=== PATIENT | female | born 1995 | race Caucasian/White ===

== ENCOUNTER 2018-12-28 23:51 | Emergency (ER) | payer OTHER ==
[2018-12-29 00:40] LABS: Absolute Neutrophil Ct (ANC) 3.26 (1.4-6.9); BASOPHIL % 0.2 % (0.0-0.4); Basophil (Absolute #) 0.01 (0-0.4); Eosinophil % 0.4 % (0.00-5.0); Eosinophil (Absolute #) 0.02 (0-0.5); Hemoglobin 9.9 gm/dl (12.0-16.0); Lymphocyte (Absolute #) 1.39 (1.0-4.6); Mean Cell Volume 74.4 fl (78-100); Mean Corpuscular Hgb Concent. 30.9 g/dl (32-36); Mean Platelet Volume 8.9 fl (6-9.5); Monocyte (Absolute #) 0.46 (0.0-1.3); Monocytes % 8.9 % (0.0-12.0); Neutrophil % 63.5 % (36.0-66.0); Platelet Count 206 K/mm3 (150-450); Red Cell Distribution Width 17.6 % (11.5-14.0); White Blood Count 5.1 K/mm3 (4.0-10.5)
[2018-12-29 00:53] LABS: ALBUMIN 3.8 g/dL (3.5-5.0); ALKALINE PHOSPHATASE 87 U/L (38-126); ANION GAP 12.2 MEQ/L (5-15); BLOOD UREA NITROGEN 10 mg/dL (7-17); CHLORIDE 101 mmol/L (98-107); Calcium 9.3 mg/dL (8.4-10.2); Carbon Dioxide 32 mmol/L (22-30); Creatinine 1 0.48 mg/dL (0.52-1.04); Glucose 106 mg/dL (74-106); Potassium 3.9 mmol/L (3.5-5.1); SGOT/AST 24 U/L (14-36); SGPT/ALT 12 U/L (0-35); SODIUM 142 mmol/L (137-145)
[2018-12-29 01:21] LABS: Slide Review 1 YES
[2018-12-29 01:33] LABS: Barbiturate,Urine NEGATIVE (NEGATIVE); Benzodiazepine,Urine POSITIVE (NEGATIVE); Cocaine,Urine NEGATIVE (NEGATIVE); Methadone,Urine NEGATIVE (NEGATIVE); Opiate,Urine POSITIVE (NEGATIVE); PCP,Urine NEGATIVE (NEGATIVE); THC,Urine NEGATIVE (NEGATIVE)
[2018-12-29] MEDS ORDERED: Depacon 500 MG/5 ML IV ONE (01:58)
[2018-12-29] MEDS ORDERED: Sodium Chloride 0.9% 100 ML IVPB 100 ML IV ONE (01:58)
[2018-12-29] MEDS: Depacon 500 MG/5 ML*** 500 MG in Sodium Chloride 0.9% 100 ML IVPB 100 ML IV ONE (02:05)
[2018-12-29 02:06] LABS: Amphetamine,Urine POSITIVE (NEGATIVE)
--- NOTE | 2018-12-29 02:11 | ERPHSYRPT ---
- History of Present Illness Time Seen by Provider: 12/29/18 01:15 Source: patient, EMS Exam Limitations: clinical condition Patient Subjective Stated Complaint: pt states that she had seizure yesterday and today, pt states that she has infection in her spine, pt states that she gets infusions, pt states she had seizure after being pulled over by police, police states that pt convulsions for 2 minutes, police state that pt was lethargic prior to seizure, pt had seizure at 2320 Triage Nursing Assessment: pt came into the er via ambulance, pt is tearful, pt states that she had heroin at 1700, pt states 10/10 pain to back, pupils 5 mm round and reactive, 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 This was observed by the police she did seem postictal for a short time afterwards. Timing/Duration: today Severity of Symptoms-Max: moderate Severity of Symptoms-Current: moderate Associated Symptoms: anxiety Previous symptoms: same symptoms as today Allergies/Adverse Reactions: No Known Drug Allergies Allergy (Unverified 12/29/18 01:05) Hx Tetanus, Diphtheria Vaccination/Date Given: No Hx Influenza Vaccination/Date Given: No Hx Pneumococcal Vaccination/Date Given: No - Past Medical History Neurological History: Seizures Psycho-Social History: Anxiety, Bipolar, Depression Other Medical History: discitis - Social History Smoking Status: Current every day smoker How long have you smoked: 0.5 Exposure to second hand smoke: Yes Drug Use: methamphetamines, heroin Patient Lives Alone: Yes - Female History Hx Last Menstrual Period: 12/24/18 Hx Now: No - Review of Systems Constitutional: No Fever, No Chills Eyes: No Symptoms Ears, Nose, & Throat: No Symptoms Respiratory: No Cough, No Dyspnea Cardiac: No Chest Pain, No Edema, No Syncope Abdominal/Gastrointestinal: No Abdominal Pain, No Nausea, No Vomiting, No Diarrhea Genitourinary Symptoms: No Dysuria Musculoskeletal: No Back Pain, No Neck Pain Skin: No Rash Neurological: Seizure, No Dizziness, No Focal Weakness, No Sensory Changes Psychological: No Symptoms Endocrine: No Symptoms All Other Systems: Reviewed and Negative - Nursing Vital Signs Nursing Vital Signs: Initial Vital Signs Pulse Rate 104 H 12/29/18 01:10 Blood Pressure 131/78 12/29/18 01:10 O2 Sat by Pulse Oximetry 100 12/29/18 01:10 Pain Scale Pain Intensity 10 - Physical Exam General Appearance: mild distress Eyes, Ears, Nose, Throat Exam: normal ENT inspection, moist mucous membranes Neck Exam: normal inspection, non-tender, supple Respiratory Exam: normal breath sounds, lungs clear, No respiratory distress Cardiovascular Exam: regular rate/rhythm, No edema Gastrointestinal/Abdominal Exam: soft, No tenderness, No distention Extremities Exam: normal inspection, normal range of motion, No evidence of injury, No edema Current Suicidality: denies suicide plan 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, 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, oriented x 3 Skin Exam: normal color, warm, dry, No rash SpO2: 100 - CT Exams Head CT Interpretation: Negative, Tele-radiologist Report Ordered Tests: Active Orders 24 hr Category Date Time Status Clean Catch Urine Specimen STAT Care 12/29/18 00:30 Active IV Insertion STAT Care 12/29/18 00:01 Active CHEST 1 VIEW (PORTABLE) Stat Exams 12/29/18 00:01 Ordered HEAD WITHOUT CONTRAST [CT] Stat Exams 12/29/18 00:02 Ordered CBC W DIFF Stat Lab 12/29/18 00:37 Completed CMP Stat Lab 12/29/18 00:37 Completed HCG,QUALITATIVE URINE Stat Lab 12/29/18 01:14 Completed Lactic Acid Stat Lab 12/29/18 00:35 Completed Urine Triage Profile Stat Lab 12/29/18 01:14 Completed Medication Summary Generic Name Dose Route Start Last Admin Trade Name Freq PRN Reason Stop Dose Admin Valproate Sodium 500 mg/ 105 mls @ 210 mls/hr 12/29/18 01:46 Sodium Chloride IV 12/29/18 02:15 STAT ONE Discontinued Medications Generic Name Dose Route Start Last Admin Trade Name Freq PRN Reason Stop Dose Admin Sodium Chloride Confirm 12/29/18 01:58 Sodium Chloride 0.9% 100 Ml Ivpb Administered 12/29/18 01:59 Dose 100 mls @ ud IV .STK-MED ONE Valproate Sodium Confirm 12/29/18 01:58 Depacon 500 Mg/5 Ml Administered 12/29/18 01:59 Dose 500 mg IV .STK-MED ONE Lab/Rad Data: Laboratory Result Diagrams 12/29/18 00:37 12/29/18 00:37 Laboratory Results 1112/29/18 12/29/18 Range/Units 01:14 00:37 00:37 WBC (4.0-10.5) K/mm3 RBC (4.1-5.4) M/mm3 Hgb (12.0-16.0) gm/dl Hct (35-47) % MCV (78-100) fl MCH (26-32) pg MCHC (32-36) g/dl RDW (11.5-14.0) % Plt Count (150-450) K/mm3 MPV (6-9.5) fl Gran % (36.0-66.0) % Eos # (Auto) (0-0.5) Absolute Lymphs (auto) (1.0-4.6) Absolute Monos (auto) (0.0-1.3) Lymphocytes % (24.0-44.0) % Monocytes % (0.0-12.0) % Eosinophils % (0.00-5.0) % Basophils % (0.0-0.4) % Absolute Granulocytes (1.4-6.9) Basophils # (0-0.4) Sodium 142 (137-145) mmol/L Potassium 3.9 (3.5-5.1) mmol/L Chloride 101 (98-107) mmol/L Carbon Dioxide 32 H (22-30) mmol/L Anion Gap 12.2 (5-15) MEQ/L BUN 10 (7-17) mg/dL Creatinine 0.48 L (0.52-1.04) mg/dL Estimated GFR > 60.0 ML/MIN Glucose 106 (74-106) mg/dL Lactic Acid (0.4-2.0) Calcium 9.3 (8.4-10.2) mg/dL Total Bilirubin 0.30 (0.2-1.3) mg/dL AST 24 (14-36) U/L ALT 12 (0-35) U/L Alkaline Phosphatase 87 (38-126) U/L Serum Total Protein 8.0 (6.3-8.2) g/dL Albumin 3.8 (3.5-5.0) g/dL Urine HCG, Qual NEGATIVE (Negative) Valproic Acid < 10.0 L (50-100) ug/mL Slides for Path Review 12/29/18 12/29/18 Range/Units 00:37 00:35 WBC 5.1 (4.0-10.5) K/mm3 RBC 4.30 (4.1-5.4) M/mm3 Hgb 9.9 L (12.0-16.0) gm/dl Hct 32.0 L (35-47) % MCV 74.4 L (78-100) fl MCH 23.0 L (26-32) pg MCHC 30.9 L (32-36) g/dl RDW 17.6 H (11.5-14.0) % Plt Count 206 (150-450) K/mm3 MPV 8.9 (6-9.5) fl Gran % 63.5 (36.0-66.0) % Eos # (Auto) 0.02 (0-0.5) Absolute Lymphs (auto) 1.39 (1.0-4.6) Absolute Monos (auto) 0.46 (0.0-1.3) Lymphocytes % 27.0 (24.0-44.0) % Monocytes % 8.9 (0.0-12.0) % Eosinophils % 0.4 (0.00-5.0) % Basophils % 0.2 (0.0-0.4) % Absolute Granulocytes 3.26 (1.4-6.9) Basophils # 0.01 (0-0.4) Sodium (137-145) mmol/L Potassium (3.5-5.1) mmol/L Chloride (98-107) mmol/L Carbon Dioxide (22-30) mmol/L Anion Gap (5-15) MEQ/L BUN (7-17) mg/dL Creatinine (0.52-1.04) mg/dL Estimated GFR ML/MIN Glucose (74-106) mg/dL Lactic Acid 0.9 (0.4-2.0) Calcium (8.4-10.2) mg/dL Total Bilirubin (0.2-1.3) mg/dL AST (14-36) U/L ALT (0-35) U/L Alkaline Phosphatase (38-126) U/L Serum Total Protein (6.3-8.2) g/dL Albumin (3.5-5.0) g/dL Urine HCG, Qual (Negative) Valproic Acid (50-100) ug/mL Slides for Path Review YES - Progress Progress: improved Counseled pt/family regarding: drug and/or alcohol abuse - Departure Departure Disposition: [facility] Clinical Impression: Seizure disorder Condition: Stable Critical Care Time: No Referrals: Provider,Unknown [Primary Care Provider] - Plan of Treatment: treatment plan will be to restart her on Depakote 500 mg twice a day to prevent seizures Prescriptions: Divalproex Sodium [Depakote] 500 mg PO BID 30 Days #60 tablet.
[2018-12-29 02:38] VITALS: O2SAT 97
[2018-12-29 03:06] VITALS: BP 109/64; PULSE 97
--- NOTE | 2018-12-29 07:05 | XRAY ---
Indication: Seizure. Comparison: None Portable chest demonstrates normal heart, lungs, and bony thorax with incidental left mediastinal/hilar/pulmonary calcified granulomas.
--- NOTE | 2018-12-29 07:07 | XRAY ---
Indication: Seizure. Multiple contiguous axial images obtained through the head without contrast. Comparison: None Normal appearing brain parenchyma, ventricles, and bony calvarium. Visualized paranasal sinuses and mastoid air cells are clear. Impression: Normal CT head without contrast exam. Comment: Preliminary interpretation was made by [facility]. No discrepancy. CTDI 59.97
== END 2018-12-29 03:40 | disposition home or self-care (01) ==
LOC: ED 23:51
DX: G40.909 Epilepsy, unspecified, not intractable, without status epilepticus (principal); Z79.899 Other long term (current) drug therapy; F19.10 Other psychoactive substance abuse, uncomplicated; F41.9 Anxiety disorder, unspecified; F31.9 Bipolar disorder, unspecified
CPT/HCPCS: 36415; 70450; 71045; 80053; 80164; 80307; 83605; 84146; 84703; 85025; 99284

== ENCOUNTER 2019-01-03 23:38 | Emergency (ER) | payer OTHER ==
--- NOTE | 2019-01-03 23:42 | ERPHSYRPT ---
- History of Present Illness Time Seen by Provider: 01/03/19 23:42 Source: patient, EMS Exam Limitations: no limitations Physician History: 23 years old female with history of IV drug abuse, seizure disorder not taking any medications from anxiety, depression currently in the skilled nursing for possession of drugs charges is brought in the ER with 2 seizure witnessed by skilled nursing staff prior to arrival. There were generalized tonic-clonic with postictal phase for few minutes which is improved by the time patient presented in the ER. Patient reports she remembers smelling strange and nothing not worse. She usually have strange smell before seizure. Regarding the skilled nursing staff she did not hit her head. She is not complaining of headache, chest pain palpitations or shortness of breath. No abdominal pain nausea or vomiting. Patient is supposed to take Depakote but is not taking as she has decreased oral intake and it makes her more nauseated been vomiting. No fever or chills reported. Last drug use was almost a week ago. Timing/Duration: today Severity: moderate Associated Symptoms: seizures Allergies/Adverse Reactions: No Known Drug Allergies Allergy (Unverified 12/29/18 01:05) Hx Tetanus, Diphtheria Vaccination/Date Given: No Hx Influenza Vaccination/Date Given: No Hx Pneumococcal Vaccination/Date Given: No - Review of Systems Constitutional: Fatigue Eyes: No Symptoms Ears, Nose, & Throat: Nose Congestion Respiratory: No Symptoms Cardiac: No Symptoms Abdominal/Gastrointestinal: No Symptoms Genitourinary Symptoms: No Symptoms Musculoskeletal: No Symptoms Skin: No Symptoms Neurological: Seizure Psychological: Anxiety, Other Endocrine: No Symptoms Hematologic/Lymphatic: No Symptoms Immunological/Allergic: No Symptoms - Past Medical History Neurological History: Seizures Psycho-Social History: Anxiety, Bipolar, Depression Other Medical History: discitis - Social History Smoking Status: Current every day smoker How long have you smoked: 0.5 Exposure to second hand smoke: Yes Drug Use: methamphetamines, heroin Patient Lives Alone: Yes - Nursing Vital Signs Nursing Vital Signs: Initial Vital Signs Temperature 98.4 F 01/03/19 23:42 Pulse Rate 56 L 01/03/19 23:42 Respiratory Rate 15 01/03/19 23:42 Blood Pressure 106/62 01/03/19 23:42 O2 Sat by Pulse Oximetry 100 01/03/19 23:42 Pain Scale Pain Intensity 4 - Jose D Coma Scale Best Eye Response ([place]): (4) open spontaneously Best Verbal Response ([place]): (5) oriented Best Motor Response (Jose D): (6) obeys commands Jose D Total: 15 - Physical Exam General Appearance: no apparent distress, alert Eye Exam: bilateral eye: normal inspection, PERRL, EOMI Ears, Nose, Throat Exam: normal ENT inspection, pharynx normal Neck Exam: normal inspection, non-tender, supple, full range of motion Respiratory: normal breath sounds, lungs clear, respiratory distress Cardiovascular: regular rate/rhythm, normal heart sounds, normal peripheral pulses Gastrointestinal: soft, normal bowel sounds, No tenderness, No distention Back Exam: normal inspection, normal range of motion, No CVA tenderness Extremity Exam: normal inspection, normal range of motion Mental Status: alert, oriented x 3, 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 Exam: normal hearing, normal speech, PERRL Coordination/Gait: normal finger to nose, normal cerebellar function Motor/Sensory: no motor deficit, no sensory deficit, no pronator drift DTR: tricep (R): 2+, tricep (L): 2+, knee (R): 2+, knee (L): 2+ Skin Exam: normal color, warm, dry SpO2 Interpretation: normal O2 Delivery: Room Air - Course Nursing assessment & vital signs reviewed: Yes Ordered Tests: Active Orders 24 hr Category Date Time Status Accucheck STAT Care 01/03/19 23:44 Active IV Insertion STAT Care 01/03/19 23:44 Active Lactic Acid Stat Lab 01/03/19 23:44 Completed Medication Summary Discontinued Medications Generic Name Dose Route Start Last Admin Trade Name Freq PRN Reason Stop Dose Admin Divalproex Sodium 1,000 mg 01/04/19 01:00 01/04/19 01:12 Depakote Extended Release 250 Mg PO 02/03/19 00:59 1,000 mg 1XONLY NADIRA Administration Sodium Chloride 1,000 mls @ 999 mls/hr 01/03/19 23:44 01/04/19 01:13 Sodium Chloride 0.9% 1000 Ml IV 01/04/19 00:44 Not Given .Q1H1M STA Valproate Sodium 500 mg/ 105 mls @ 210 mls/hr 01/03/19 23:44 01/04/19 01:13 Sodium Chloride IV 01/04/19 00:13 Not Given STAT ONE Sodium Chloride Confirm 01/03/19 23:51 Sodium Chloride 0.9% 100 Ml Ivpb Administered 01/03/19 23:52 Dose 100 mls @ ud IV .STK-MED ONE Potassium Chloride 40 meq 01/04/19 00:56 01/04/19 01:12 Klor Con 10 Meq PO 01/04/19 00:57 40 meq STAT ONE Administration Potassium Chloride Confirm 01/04/19 01:01 Klor Con 10 Meq Administered 01/04/19 01:02 Dose 40 meq PO .STK-MED ONE Valproate Sodium Confirm 01/03/19 23:50 Depacon 500 Mg/5 Ml Administered 01/03/19 23:51 Dose 500 mg IV .STK-MED ONE Lab/Rad Data: Laboratory Result Diagrams 01/03/19 00:10 01/03/19 00:10 Laboratory Results 01/04/19 01/03/19 01/03/19 Range/Units 00:15 00:10 00:10 WBC (4.0-10.5) K/mm3 RBC (4.1-5.4) M/mm3 Hgb (12.0-16.0) gm/dl Hct (35-47) % MCV (78-100) fl MCH (26-32) pg MCHC (32-36) g/dl RDW (11.5-14.0) % Plt Count (150-450) K/mm3 MPV (6-9.5) fl Gran % (36.0-66.0) % Eos # (Auto) (0-0.5) Absolute Lymphs (auto) (1.0-4.6) Absolute Monos (auto) (0.0-1.3) Lymphocytes % (24.0-44.0) % Monocytes % (0.0-12.0) % Eosinophils % (0.00-5.0) % Basophils % (0.0-0.4) % Absolute Granulocytes (1.4-6.9) Basophils # (0-0.4) Sodium 142 (137-145) mmol/L Potassium 3.1 L (3.5-5.1) mmol/L Chloride 104 (98-107) mmol/L Carbon Dioxide 27 (22-30) mmol/L Anion Gap 14.0 (5-15) MEQ/L BUN 7 (7-17) mg/dL Creatinine 0.53 (0.52-1.04) mg/dL Estimated GFR > 60.0 ML/MIN Glucose 94 (74-106) mg/dL Lactic Acid 1.5 (0.4-2.0) Calcium 9.1 (8.4-10.2) mg/dL Total Bilirubin 0.30 (0.2-1.3) mg/dL AST 15 (14-36) U/L ALT 10 (0-35) U/L Alkaline Phosphatase 86 (38-126) U/L Serum Total Protein 7.9 (6.3-8.2) g/dL Albumin 3.9 (3.5-5.0) g/dL Valproic Acid < 10.0 L (50-100) ug/mL 01/03/19 Range/Units 00:10 WBC 8.0 (4.0-10.5) K/mm3 RBC 4.64 (4.1-5.4) M/mm3 Hgb 10.7 L (12.0-16.0) gm/dl Hct 33.8 L (35-47) % MCV 72.8 L (78-100) fl MCH 23.0 L (26-32) pg MCHC 31.7 L (32-36) g/dl RDW 18.6 H (11.5-14.0) % Plt Count 261 (150-450) K/mm3 MPV 9.1 (6-9.5) fl Gran % 61.9 (36.0-66.0) % Eos # (Auto) 0.01 (0-0.5) Absolute Lymphs (auto) 2.34 (1.0-4.6) Absolute Monos (auto) 0.66 (0.0-1.3) Lymphocytes % 29.4 (24.0-44.0) % Monocytes % 8.3 (0.0-12.0) % Eosinophils % 0.1 (0.00-5.0) % Basophils % 0.3 (0.0-0.4) % Absolute Granulocytes 4.92 (1.4-6.9) Basophils # 0.02 (0-0.4) Sodium (137-145) mmol/L Potassium (3.5-5.1) mmol/L Chloride (98-107) mmol/L Carbon Dioxide (22-30) mmol/L Anion Gap (5-15) MEQ/L BUN (7-17) mg/dL Creatinine (0.52-1.04) mg/dL Estimated GFR ML/MIN Glucose (74-106) mg/dL Lactic Acid (0.4-2.0) Calcium (8.4-10.2) mg/dL Total Bilirubin (0.2-1.3) mg/dL AST (14-36) U/L ALT (0-35) U/L Alkaline Phosphatase (38-126) U/L Serum Total Protein (6.3-8.2) g/dL Albumin (3.5-5.0) g/dL Valproic Acid (50-100) ug/mL - Progress Progress: improved, re-examined Progress Note: patient is back to her baseline on presentation in the ER. Nonfocal neuro exam. She is given loading dose of Depakote. Workup is grossly negative except for mildly low potassium for which she is on replacement. She has an obvious reason for seizing being noncompliant with medications. I will give her Zofran to take as needed for nausea and continue with Depakote at the skilled nursing. I do not think she needs any further workup or other imaging with unknown diagnosis and nonfocal neuro exam. At this point patient is being discharged back to skilled nursing. 01/04/19 02:09 Counseled pt/family regarding: lab results, diagnosis, need for follow-up - Departure Departure Disposition: [facility]/Intermediate Clinical Impression: Seizure disorder, Hypokalemia Condition: Stable Critical Care Time: No Referrals: Provider,Unknown [Primary Care Provider] - ERICA GÓMEZ [NON-STAFF PHY W/O PRIVILEGES] - Follow Up with PCP/3 days Instructions: Hypokalemia (DC), Seizures, Adult (DC) Additional Instructions: take seizure medication as recommended. Followup with primary care and neurology for reevaluation. Return to ER for any worsening. Takes Zofran as needed for nausea. Prescriptions: Ondansetron ODT 4 MG [Zofran Odt 4 mg] 4 mg PO Q6H PRN PRN #10 tab.rapdis PRN Reason: Nausea
[2019-01-03 23:43] VITALS: O2SAT 100
[2019-01-03] MEDS ORDERED: Depacon 500 MG/5 ML*** 500 MG in Sodium Chloride 0.9% 100 ML IVPB 100 ML IV ONE (23:44)
[2019-01-03] MEDS ORDERED: Sodium Chloride 0.9% 1000 ML 1,000 ML IV STA (23:44)
[2019-01-03] MEDS ORDERED: Depacon 500 MG/5 ML IV ONE (23:50)
[2019-01-03] MEDS ORDERED: Sodium Chloride 0.9% 100 ML IVPB 0 ML IV ONE (23:51)
[2019-01-04 00:25] LABS: Absolute Neutrophil Ct (ANC) 4.92 (1.4-6.9); BASOPHIL % 0.3 % (0.0-0.4); Basophil (Absolute #) 0.02 (0-0.4); Eosinophil % 0.1 % (0.00-5.0); Eosinophil (Absolute #) 0.01 (0-0.5); Hematocrit 33.8 % (35-47); Hemoglobin 10.7 gm/dl (12.0-16.0); Lymphocyte (Absolute #) 2.34 (1.0-4.6); Lymphocytes % 29.4 % (24.0-44.0); Mean Cell Volume 72.8 fl (78-100); Mean Corpuscular Hgb Concent. 31.7 g/dl (32-36); Mean Platelet Volume 9.1 fl (6-9.5); Monocyte (Absolute #) 0.66 (0.0-1.3); Monocytes % 8.3 % (0.0-12.0); Neutrophil % 61.9 % (36.0-66.0); Platelet Count 261 K/mm3 (150-450); Red Blood Count 4.64 M/mm3 (4.1-5.4); Red Cell Distribution Width 18.6 % (11.5-14.0)
[2019-01-04 00:37] LABS: ALBUMIN 3.9 g/dL (3.5-5.0); ALKALINE PHOSPHATASE 86 U/L (38-126); BLOOD UREA NITROGEN 7 mg/dL (7-17); CHLORIDE 104 mmol/L (98-107); Calcium 9.1 mg/dL (8.4-10.2); Carbon Dioxide 27 mmol/L (22-30); Creatinine 1 0.53 mg/dL (0.52-1.04); Glucose 94 mg/dL (74-106); Potassium 3.1 mmol/L (3.5-5.1); SGOT/AST 15 U/L (14-36); SGPT/ALT 10 U/L (0-35); SODIUM 142 mmol/L (137-145); Total Protein 7.9 g/dL (6.3-8.2)
[2019-01-04] MEDS ORDERED: Klor Con 10 MEQ PO ONE ×2 (00:56→01:01)
[2019-01-04] MEDS ORDERED: Depakote EXTENDED RELEASE 250 MG PO SCH (01:00)
[2019-01-04 01:22] VITALS: BP 104/56; PULSE 51
== END 2019-01-04 02:02 ==
LOC: ED 23:38
DX: G40.909 Epilepsy, unspecified, not intractable, without status epilepticus (principal); E87.6 Hypokalemia
CPT/HCPCS: 36415; 80053; 80164; 82962; 83605; 85025; 99284; A9270-GY